=== PATIENT | male | born 1990 | race Caucasian/White ===

== ENCOUNTER 2017-04-22 15:03 | Emergency (ER) | payer BC ==
[2017-04-22] MEDS ORDERED: NORMAL SALINE 1000 ML 1,000 ML IV PRN (15:34)
[2017-04-22] MEDS ORDERED: PANTOPRAZOLE SODIUM 40 MG VIAL IV ONE (15:35)
[2017-04-22] MEDS ORDERED: ONDANSETRON 4 MG TAB.RAPDIS PO ONE (15:35)
--- NOTE | 2017-04-22 15:37 | ER Document Report ---
ED Medical Screen (RME) - General Chief Complaint: Vomiting Stated Complaint: VOMITING BLOOD Time Seen by Provider: 04/22/17 15:33 Mode of Arrival: Ambulatory Information source: Patient Notes: Is a 27-year-old male prior medical problems who presents to the emergency room after vomiting blood. Patient states he went to bed at 3 AM (which is normal for him) and was well broken from sleep with vomiting. Patient states it was a large amount of bright red blood., The patient reports continued nausea. TRAVEL OUTSIDE OF THE [place] IN LAST 30 DAYS: No - Related Data Allergies/Adverse Reactions: No Known Allergies Allergy (Verified 04/22/17 15:09) Past Medical History Renal/ Medical History: Denies: Hx Peritoneal Dialysis - Immunizations Immunizations up to date: Yes Hx Diphtheria, Pertussis, Tetanus Vaccination: No Physical Exam - Vital signs Vitals: Temp Pulse Resp BP Pulse Ox 98.3 F 120 H 16 138/90 H 96 04/22/17 15:09 04/22/17 15:09 04/22/17 15:09 04/22/17 15:09 04/22/17 15:09 Course - Vital Signs Vital signs: Temp Pulse Resp BP Pulse Ox 98.3 F 120 H 16 138/90 H 96 04/22/17 15:09 04/22/17 15:09 04/22/17 15:09 04/22/17 15:09 04/22/17 15:09
--- NOTE | 2017-04-22 16:06 | ER Document Report ---
ED General - General Chief Complaint: Vomiting Stated Complaint: VOMITING BLOOD Time Seen by Provider: 04/22/17 15:33 Mode of Arrival: Ambulatory Notes: 27-year-old male with a history of gastroesophageal reflux disease presents with burning upper abdominal pain this morning similar to his prior GERD followed by vomiting 4 or 5 episodes. The first episode there was some bright red blood mixed with the vomit. There is no coffee grounds. He subsequently has vomited 3 times only yellow-green. No further blood. He has minimal abdominal discomfort at this point. He had one loose stool today which was not black or red. He does not take any long-term acid suppression except for Tums. Denies alcohol more than once or twice a week, and denies NSAID use other than 1 or 2 ibuprofen every couple of days. He denies dizziness. Noted to be slightly tachycardic in triage. Labs were ordered, sublingual Zofran and IV Protonix ordered. TRAVEL OUTSIDE OF THE [place] IN LAST 30 DAYS: No - Related Data Allergies/Adverse Reactions: No Known Allergies Allergy (Verified 04/22/17 15:09) Past Medical History - General Information source: Patient - Social History Smoking Status: Never Smoker Family History: None Patient has suicidal ideation: No Patient has homicidal ideation: No Renal/ Medical History: Denies: Hx Peritoneal Dialysis - Immunizations Immunizations up to date: Yes Hx Diphtheria, Pertussis, Tetanus Vaccination: No Review of Systems - Review of Systems Notes: REVIEW OF SYSTEMS GEN: Denies fever, chills, weight loss ENT: Denies sore throat, nasal discharge, ear pain EYES: Denies blurry vision, eye pain, discharge CV: Denies chest pain, palpitations, edema RESP: Denies cough, shortness of breath, wheezing GI: D burning upper abdominal pain, nausea vomiting, hematemesis MSK: Denies joint pain/swelling, edema, SKIN: Denies rash, skin lesions LYMPH: Denies swollen glands/lymph nodes NEURO: Denies headache, focal weakness or numbness, dizziness PSYCH: Denies depression, suicidal or homicidal ideation PHYSICAL EXAMINATION General: No acute distress, well-nourished Head: Atraumatic, normocephalic ENT: Mouth normal, oropharynx moist, no exudates or tonsillar enlargement Eyes: Conjunctiva normal, pupils equal, lids normal Neck: No JVD, supple, no guarding CVS: Tachycardia, regular rhythm, no murmurs Resp: No resp distress, equal and normal breath sounds bilaterally GI: Nondistended, soft, periumbilical tenderness to palpation, no rebound or guarding Ext: No deformities, no edema, normal range of motion in upper and lower ext Back: No CVA or midline TTP Skin: No rash, warm Lymphatic: No lymphadeopathy noted Neuro: Awake, alert. Face symmetric. GCS 15. Physical Exam - Vital signs Vitals: Temp Pulse Resp BP Pulse Ox 98.3 F 120 H 16 138/90 H 96 04/22/17 15:09 04/22/17 15:09 04/22/17 15:09 04/22/17 15:09 04/22/17 15:09 Course - Re-evaluation Re-evalutation: 04/22/17 16:05 27-year-old male with history of GERD presents with vomiting resolving abdominal discomfort, and an episode of hematemesis followed by normal vomiting. He has some mild tachycardia here but appears generally well. Differential includes gastritis GERD less likely gallbladder disease, upper GI bleed, most likely from a Eliza-Kumar tear. He is already received Protonix and Zofran, I will let him finish 1 L of fluid, reassess his vitals, check labs. 04/22/17 16:38 04/22/17 16:50 Patient reassessed. Heart rate has normalized. He feels well and had an appetite. His hemoglobin is high normal. He will be discharged on proton pump inhibitors and follow up with GI. He likely has a Eliza-Kumar tear and I believe he is low risk enough from a GI standpoint, to be discharged. He and his family were okay with this. Insert my discharge - Vital Signs Vital signs: Temp Pulse Resp BP Pulse Ox 98.3 F 120 H 26 H 138/90 H 100 04/22/17 15:09 04/22/17 15:09 04/22/17 16:12 04/22/17 15:04/22/17 16:12 - Laboratory Result Diagrams: 04/22/17 15:50 04/22/17 15:50 Laboratory results interpreted by me: 04/22/17 15:50 RBC 5.76 H Hct 52.0 H Seg Neutrophils % 84.0 H Lymphocytes % 8.2 L Discharge - Discharge Clinical Impression: Gastritis Qualifiers: Gastritis type: unspecified gastritis Chronicity: acute Gastritis bleeding: with bleeding Qualified Code(s): K29.01 - Acute gastritis with bleeding Disposition: HOME, SELF-CARE Instructions: Gastritis ([facility]), Upper Gastrointestinal Bleeding ([facility]) Prescriptions: Pantoprazole Sodium [Protonix] 40 mg PO BID #60 tablet. Referrals: GASTROENTEROLOGY [Provider Group] - Follow up in 3-5 days
[2017-04-22 16:09] LABS: ABSOLUTE LYMPHOCYTES (AUTO) 0.6 10^3/uL (0.5-4.7); ABSOLUTE MONOCYTES (AUTO) 0.5 10^3/uL (0.1-1.4); ABSOLUTE NEUT (AUTO) 6.2 10^3/uL (1.7-8.2); BASOPHILS % (AUTO) 0.2 % (0-2); EOSINOPHILS % (AUTO) 0.2 % (0-6); LYMPHOCYTES % (AUTO) 8.2 % (13-45); MEAN CORPUSCULAR HEMOGLOBIN 29.6 pg (27.0-33.4); MEAN CORPUSCULAR HGB CONC 32.8 g/dL (32.0-36.0); MEAN CORPUSCULAR VOLUME 90 fl (80-97); MONOCYTES % (AUTO) 7.4 % (3-13); RED BLOOD COUNT 5.76 10^6/uL (4.35-5.55); RED CELL DISTRIBUTION WIDTH 12.5 % (11.5-14.0); WHITE BLOOD COUNT 7.4 10^3/uL (4.0-10.5)
[2017-04-22 16:16] LABS: PROTHROMBIN TIME 13.2 SEC (11.4-15.4)
[2017-04-22 16:27] LABS: ALANINE AMINOTRANSFERASE 48 U/L (21-72); ALBUMIN 4.7 g/dL (3.5-5.0); ALKALINE PHOSPHATASE 83 U/L (38-126); ANION GAP 11 (5-19); ASPARTATE AMINO TRANSFERASE 22 U/L (17-59); BILIRUBIN,DIRECT 0.3 mg/dL (0.0-0.4); BILIRUBIN,TOTAL 0.9 mg/dL (0.2-1.3); BLOOD UREA NITROGEN 17 mg/dL (7-20); CALCIUM 9.5 mg/dL (8.4-10.2); CARBON DIOXIDE 29 mmol/L (22-30); CHLORIDE 103 mmol/L (98-107); CREATININE RESULT 0.93 mg/dL (0.52-1.25); GLUCOSE 108 mg/dL (75-110); POTASSIUM 4.9 mmol/L (3.6-5.0); SODIUM 142.5 mmol/L (137-145); TOTAL PROTEIN 7.7 g/dL (6.3-8.2)
--- NOTE | 2017-04-22 16:46 | RADIOLOGY REPORT (SQ) ---
EXAM DESCRIPTION: CHEST SINGLE VIEW COMPLETED DATE/TIME: 04/22/2017 4:35 pm REASON FOR STUDY: vomiting COMPARISON: None. EXAM PARAMETERS: NUMBER OF VIEWS: One view. TECHNIQUE: Single frontal radiographic view of the chest acquired. RADIATION DOSE: NA LIMITATIONS: None. FINDINGS: LUNGS AND PLEURA: No opacities, masses or pneumothorax. No pleural effusion. Incidental n ote is made of normal variant azygos lobe morphology. MEDIASTINUM AND HILAR STRUCTURES: No masses. Contour normal. HEART AND VASCULAR STRUCTURES: Heart normal in size. Normal vasculature. BONES: No acute findings. HARDWARE: None in the chest. OTHER: No other significant finding. IMPRESSION: NO ACUTE RADIOGRAPHIC FINDING IN THE CHEST. TECHNICAL DOCUMENTATION: JOB ID: [id number]
[2017-04-22 17:18] VITALS: BP 129/80
== END 2017-04-22 17:16 | disposition home or self-care (01) ==
LOC: ER 15:03
DX: K29.01 Acute gastritis with bleeding (principal); K21.9 Gastro-esophageal reflux disease without esophagitis; Z79.899 Other long term (current) drug therapy; R00.0 Tachycardia, unspecified
CPT/HCPCS: 99284; 96374; 36415; 85025; 85610; 80053; 71010; S0119; S0164; J7030